=== PATIENT | female | born 1995 | race African-American/Black ===

== ENCOUNTER 2023-04-25 11:51 | Emergency (ER) | payer OTHER ==
[~2023-04-25] VITALS: Ht 152.4 cm; Wt 72.7 kg
[2023-04-25 12:47] VITALS: BP 112/66
[2023-04-25] MEDS ORDERED: FAMOTIDINE 20 MG TAB PO ONE (13:00)
[2023-04-25] MEDS ORDERED: MAALOX PLUS or MAALOX 30 ML PO ONE (13:00)
[2023-04-25] MEDS ORDERED: METOCLOPRAMIDE HCL 10 MG TAB PO ONE (13:00)
[2023-04-25 13:33] LABS: Eosinophils # (auto) 0 10 ^3/uL (0-0.8); Eosinophils % (auto) 0.3 % (0.0-7.0); Hemoglobin 14.9 g/dL (12.2-16.2); Lymphocytes # (auto) 2.3 10 ^3/uL (0.4-5.4); Neutrophils # (auto) 4.6 10 ^3/uL (1.6-8.6); Nucleated Red Blood Cells % 0.1 %
[2023-04-25 13:36] LABS: Basophils # (auto) 0 10 ^3/uL (0-0.2); Basophils % (auto) 0.6 % (0.0-2.0); Hematocrit 43.5 % (36.0-46.0); Lymphocytes % (auto) 29.4 % (10.0-50.0); Mean Corpuscular Hemoglobin 32.9 pg (28.0-32.0); Mean Corpuscular Hgb Conc. 34.2 g/dL (32.0-36.0); Monocytes # (auto) 0.8 10 ^3/uL (0-1.3); Neutrophils % (auto) 59.7 % (37.0-80.0); Red Blood Cells 4.53 10^6/uL (4.0-5.20); Red Cell Distribution Width 13.6 % (11.8-14.3); White Blood Cell 7.6 10^3/uL (4.4-10.8)
[2023-04-25 14:01] LABS: Albumin 4.3 g/dL (3.4-5.0); Calcium 8.9 mg/dL (8.5-10.1); Potassium 3.6 mmol/L (3.5-5.1)
[2023-04-25 14:04] LABS: BUN/Creatinine Ratio 14.1 (10.0-20.0); Bilirubin, Total 0.9 mg/dL (0.2-1.0); Total Protein 7.8 g/dL (6.4-8.2)
[2023-04-25] MEDS ORDERED: OMEP-335 PO (14:34)
[2023-04-25] MEDS ORDERED: METO-281 PO (14:34)
== END 2023-04-25 14:34 | disposition home or self-care (01) ==
LOC: EDBD 11:51 → ER 11:51
DX: K29.70 Gastritis, unspecified, without bleeding (principal); K21.9 Gastro-esophageal reflux disease without esophagitis
CPT/HCPCS: 36415; 80053; 83690; 85025; 99284; J8597